=== PATIENT | female | born 1955 | race Caucasian/White ===

== ENCOUNTER 2021-04-11 14:47 | Outpatient (CLI) | payer MEDICARE, MEDICAID, SELFPAY ==
--- NOTE | 2021-04-11 15:01 | MM_ITS ---
WS: [id number] BILATERAL DIGITAL SCREENING MAMMOGRAPHY WITH CAD CLINICAL INFORMATION: SCREN HISTORY: Screening mammogram. No current complaints. COMPARISON: TECHNIQUE: Bilateral CC and MLO views. FINDINGS: The breasts are composed of heterogeneous fibroglandular density tissue, which can limit the detectio n of small underlying mass lesions. No suspicious mass, asymmetry, calcifications, or architectural d istortion. No evidence of malignancy. Vascular calcification. A few punctate calcifications right sharif ast. MM/[place] [id number] IMPRESSION: BI-RADS: 2-Benign FOLLOW UP: 1 Year Follow-up Recommend return to annual screening mammography.
--- NOTE | 2021-04-11 16:03 | XR_ITS ---
WS: [id number] DEXA (DUAL ENERGY X-RAY ABSORPTIOMETRY) Bone mineral density was performed using a Ferevo machine. HISTORY: MUSCLE WEAKNESS, PRIMARY OSTEOARTHRITIS, vitamin DEFICIENCY COMPARISON: 07/14/2015 Lumbar spine BMD (L1-L4): 1.396 g/cm2 T score: 1.8 Z score: 2.8 Total hip BMD: Left: 1.112 g/cm2. T score: 0.8 Z score: 1.7 Right: 1.140 g/cm2. T score: 1.1 Z score: 1.9 10 year probability of a major osteoporotic fracture is 7%. Compared to the prior study from 07/14/2015. Lumbar spine bone mineral density has increased by 7.6%. Bilateral hips bone mineral density has increased by 5.3%. XR/XR DEXA axial skeleton* [id number] IMPRESSION: NORMAL BONE MINERAL DENSITY based upon the WHO classification for females. Sign ificant increase in bone mineral density since the prior study.
== END 2021-04-11 14:48 | disposition home or self-care (01) ==
PROVIDERS: PCP Family Medicine; Visit Provider Nurse Practitioner Family
DX: Z12.31 Encounter for screening mammogram for malignant neoplasm of breast (principal); M19.91 Primary osteoarthritis, unspecified site; M62.81 Muscle weakness (generalized); E56.9 Vitamin deficiency, unspecified
CPT/HCPCS: 77067; 77080

== ENCOUNTER 2022-01-17 15:14 | Outpatient (CLI) | payer MEDICARE, MEDICAID, SELFPAY ==
--- NOTE | 2022-01-17 15:00 | USCV_ITS ---
Jenniffer Leblanc Age: 66 Gender: F : 1955 Exam Date: 01/17/2022 15:12 Ordering Phys: Nicolás Moore DPM Technologist: Unique Robles Exam Location: [facility] [place] Indication: DECREASED PULSES RIGHT LEFT Brachial 122.00 mmHg Brachial 123.00 mmHg Pressure (mmHg) Waveform Pressure (mmHg) Waveform 147.00 Above Knee 148.00 159.00 Below Knee 161.00 137.00 MACHINE CELL TUBER 149.00 160.00 DPA 110.00 1.30 Ankle/Brachial Index 1.21 116.00 Pre-Exercise Toe Pressure 180.00 Pre-Exercise Toe/Brachial Index 1.46 0.94 FINDINGS Normal resting ABIs bilaterally 1.3 and 1.21 Normal resting TBI's bilaterally, 0.94 and 1.46 CONCLUSIONS Normal resting MIRNA and TBIs bilaterally No significant arterial obstruction, based on the above findings Dr Michelle Mccain MD FAC (Electronically Signed) Final Date: 18 January 2022 18:52 S
== END 2022-01-17 15:15 | disposition home or self-care (01) ==
PROVIDERS: PCP Family Medicine; Visit Provider Podiatrist Foot & Ankle Surgery
DX: R09.89 Other specified symptoms and signs involving the circulatory and respiratory systems (principal)
CPT/HCPCS: 93923

== ENCOUNTER 2022-04-24 11:03 | Outpatient (CLI) | payer MEDICARE, MEDICAID, SELFPAY ==
--- NOTE | 2022-04-24 11:11 | MM_ITS ---
WS: [id number] SCREENING DIGITAL BREAST TOMOSYNTHESIS MAMMOGRAM WITH CAD HISTORY: SCREENING COMPARISON: 04/11/2021, 09/09/2019 and 06/03/2018 Bilateral CC and MLO with tomosynthesis and synthetic mammography submitted. Computer aided detection analyzed. Breast composition: The breasts are heterogeneously dense, which may obscure small masses. Well-circu mscribed 5 mm mass in the lateral RIGHT breast at 9:00. This nodule is at a middle depth. Otherwise e ach breast is negative. MM/[place] [id number] IMPRESSION: BI-RADS: 0-Incomplete: Need additional imaging evaluation FOLLOW UP: Need Additional Imaging Recommendation: RIGHT breast ultrasound, limited. Ultrasound directed to the la teral RIGHT breast from 7-10 o'clock.
== END 2022-04-24 11:04 | disposition home or self-care (01) ==
PROVIDERS: PCP Family Medicine; Visit Provider Family Medicine
DX: Z12.31 Encounter for screening mammogram for malignant neoplasm of breast (principal)
CPT/HCPCS: 77063; 77067

== ENCOUNTER 2022-05-18 10:16 | Outpatient (CLI) | payer MEDICAID, SELFPAY ==
--- NOTE | 2022-05-18 10:26 | US_ITS ---
WS: [id number] ULTRASOUND RIGHT BREAST HISTORY: R BREAST MASS COMPARISON: Mammogram 04/24/2022. TECHNIQUE: 2-D and Doppler. On the 10:00 axis is a hypoechoic ovoid mass, 4 cm from the nipple measuring 4 x 2 x 7 mm. Mild perip heral increased vascularity. This is not a simple cyst. This corresponds in size and location to the mammographic abnormality. US/US breast RT limited* [id number] IMPRESSION: BI-RADS: 3-Probably Benign FOLLOW-UP: 6 Month Follow-up Recommend RIGHT breast ultrasound follow-up in 6 months to document stability. Benign-appearing hypoechoic lesion at 10:00, 4 cm from the nipple. This is not a simple cyst therefore needs follow-up evaluation.
== END 2022-05-18 10:17 | disposition home or self-care (01) ==
LOC: RAD 10:17
PROVIDERS: PCP Family Medicine; Visit Provider Family Medicine
DX: N63.11 Unspecified lump in the right breast, upper outer quadrant (principal)
CPT/HCPCS: 76642

== ENCOUNTER 2024-02-15 10:08 | Emergency (ER) | payer MEDICARE, MEDICAID, SELFPAY ==
--- NOTE | 2024-02-15 10:10 | ED_ITS ---
HPI - Headache General: Chief Complaint: Headache Stated Complaint: head pain Time Seen by Provider: 02/15/24 10:10 Source: patient Mode of arrival: ambulatory Limitations: no limitations History of Present Illness: Patient is a 68-year-old female [facility] ED today [facility] for evaluation of a left sided headache. Patient states she has a longstanding history of left-sided headaches ever since she had rods placed in her cervical spine. Patient states her headaches are normally controlled with Tylenol. She states her headache today feels identical to previous headaches but has lasted longer than normal and is worse in severity. She was given 100 mcg of fentanyl and route by EMS. States headache has improved upon arrival. She is requiring a small amount of oxygen from the fentanyl. She has no other complaints at this time. No neurologic deficits. MD elicited complaint: headache Pertinent past history: migraines Onset (ago): day(s) Location: left and parietal Severity: severe Quality & Timing: similar to previous headaches Exacerbating factors: none Relieving factors: other (usually Tylenol helps) Associated symptoms: Reports no associated symptoms; Deny confusion, fever(s), nausea or vomiting Treatments prior to arrival: acetaminophen and other (EMS gave IV fentanyl/zofran ) Review of Systems Const: Denies: fever(s), chills or body aches Eyes: Denies: change in vision, blurry vision, photophobia, floaters or seeing flashes GI: Denies: nausea or vomiting Musc: Denies: neck pain Neuro: Reports: headache(s); Denies: numbness in extremities, weakness in extremities, sensory changes, dizziness, confusion, Slurred speech present or difficulty communicating thoughts [facility] ED PFSH: Medical History Osteoarthritis Dyslipidemia Hypertension Back pain Social History Smoking and tobacco/nicotine status: never used tobacco/nicotine Physical Exam Const: COMMON NORMALS: no acute distress, average body habitus, patient oriented x3, no limitations, healthy appearing, alert and well nourished GENERAL APPEARANCE: cooperative ORIENTATION/CONSCIOUSNESS: Yes awake, Yes oriented to person, Yes oriented to place and Yes oriented to time HENMT: COMMON NORMALS: normocephalic and atraumatic HEAD & SCALP: normal to inspection, normocephalic and atraumatic FACE & SINUS: normal facial exam and face symmetric Eye: COMMON NORMALS: EOMs intact bilaterally GENERAL EYE: appearance normal, both eyes and all related structures and normal light reflex DIRECT OPHTHALMOSCOPY: Yes normal light reflex Neck/C-Spine: COMMON NORMALS: full ROM, no lymphadenopathy and no meningeal signs GENERAL: Yes normal visual inspection CERVICAL SPINE: Yes cervical ROM normal Resp: COMMON NORMALS: normal respiratory effort and clear to auscultation bilaterally AUSCULTATION: clear to auscultation bilaterally OTHER: requiring a small amount of O2 after EMS gave her 100mcg IV fentanyl Cardio: COMMON NORMALS: regular rate and regular rhythm RATE: regular rate RHYTHM: regular rhythm Neuro: HASEEB COMA SCALE: document GCS findings [place]eb coma scale eye opening: Spontaneous [place] coma scale verbal response: Orientated [place] coma scale motor response: Obey commands Haseeb coma scale total score: 15 COMMON NORMALS: patient oriented x3, CN's II-XII intact bilaterally, moves all extremities, no focal motor deficits and no sensory deficits noted SENSORIUM/ORIENTATION: Yes alert, Yes oriented to person, Yes oriented to place and Yes oriented to time MENINGEAL SIGNS: Yes no meningeal signs Course Vital Signs: Vital signs: Vital Signs Temperature 97.6 F 02/15/24 10:12 Pulse Rate 70 02/15/24 10:28 Respiratory Rate 20 H 02/15/24 10:12 Blood Pressure 123/78 02/15/24 10:28 Pulse Oximetry 92 02/15/24 10:28 Oxygen Delivery Me thod Nasal Cannula 02/15/24 10:28 Oxygen Flow Rate 2 02/15/24 10:28 MDM - Headache Medical Decision Making Patient is 68-year-old female with a history of chronic headaches here for a headache that was worse than her baseline. No acute neurologic deficits. CT head normal. Patient feeling better after medications given here. She states she feels comfortable going back to her prison. All radiology interpretation(s) finalized by discharge Discharge Plan Discharge Patient Disposition: Home Clinical Impression: Chronic headache Qualifiers: Headache type: unspecified Intractability: not intractable Qualified Code(s): R51.9 - Headache, unspecified Condition: Stable Prescriptions: No Action EQ Gentle 0.3 % drops 1 drp ophthalmic (eye) BID PRN bisacodyl 10 mg suppository 10 mg VA DAILY PRN simvastatin 10 mg tablet 10 mg PO DAILY albuterol sulfate 2.5 mg /3 mL (0.083 %) solution for nebulization 2.5 mg inhalation Q6H levocetirizine 5 mg tablet 5 mg PO DAILY montelukast 10 mg tablet 10 mg PO DAILY fluticasone propion-salmeterol [Advair Diskus] 100-50 mcg/dose blister with device 1 inh inhalation BID duloxetine 20 mg capsule,delayed release(DR/EC) 20 mg PO BID cyclobenzaprine 10 mg tablet 10 mg PO TID celecoxib 100 mg capsule 100 mg PO BID lisinopril 10 mg tablet 10 mg PO DAILY gabapentin 300 mg capsule 300 mg PO BID (DME) custom molded accommodative orthotic See Rx Instructions .ROUTE .MEDSUPPLY Qty: 1 0RF Rx Instructions: As directed BY [facility] Discharge Orders: Discharge ED (Routine); Ordered 02/15/24 Ordered By: Zoraida Linda Referrals: Nick Clayton Jr, MD [Staff Physician] - Activity Restrictions/Additional Instructions: As we discussed your head CT today is negative. You report feeling better after medications administered here. We will discharge you back to your prison to follow-up with your primary care provider. Coding Level of Care Code ED Chop Saw Operator for Juan Henson
[2024-02-15 10:12] VITALS: BP 123/78; PULSE 103; RESP 20; TEMP 36.4; O2SAT 86; BMI 33.2
--- NOTE | 2024-02-15 10:26 | CT_ITS ---
WS: [id number] CT HEAD TECHNIQUE: Noncontrast CT of the head obtained from the skullbase to the vertex. CLINICAL INFORMATION: pain COMPARISON: None. DLP: 1050.[address] scans at [facility] use at least one of these dose optimization techniques: automated e xposure control; mA and/or kV adjustment per patient size (includes targeted exams where dose is matc hed to clinical indication); or iterative reconstruction. FINDINGS: No evidence of intracranial hemorrhage or mass effect. Ventricular system and basal cisterns are otero nt. Mild small vessel changes with mild parenchymal volume loss. No extra-axial fluid collections. No evidence of mass or mass effect. Mild mucosal thickening in the ethmoid air cells. Mastoid air cells are well aerated. Intracranial va scular calcification. Partially visualized postoperative changes in the cervical spine seen on the sc out imaging. IMPRESSION: 1. No evidence of intracranial hemorrhage or mass effect. 2. Mild small vessel changes with mild parenchymal volume loss progressed since 2011. 3. No acute intracranial findings.
[2024-02-15 10:28] VITALS: BP 123/78; PULSE 70; O2SAT 92
[2024-02-15] MEDS: dexamethasone 4 mg/mL INJ IVP (11:19)
[2024-02-15] MEDS: ketorolac 30 mg/mL INJ 15 MG IVP (11:19)
== END 2024-02-15 12:09 | disposition home or self-care (01) ==
PROVIDERS: Emergency Provider Physician Assistant; PCP Nurse Practitioner Family
DX: R51.9 Headache, unspecified (principal); E78.5 Hyperlipidemia, unspecified; I10 Essential (primary) hypertension
CPT/HCPCS: 70450; 96374; 96375; 99285; J1100; J1885

== ENCOUNTER 2024-04-01 12:07 | Outpatient (CLI) | payer MEDICARE, MEDICAID, SELFPAY ==
--- NOTE | 2024-04-01 12:26 | MR_ITS ---
WS: [id number] MRI CERVICAL SPINE NONCONTRAST TECHNIQUE: Sagittal T1, T2 and STIR imaging. Axial T2, gradient, and fiesta imaging. CLINICAL INFORMATION: PAIN COMPARISON: MRI [address] myelogram 2014 FINDINGS: Some images degraded by susceptibility artifact from hardware Reversal of normal cervical lordosis. Slight anterolisthesis C2 on C3. Slight retrolisthesis C3 on C4 and C4 on C5. ACDF C5-6. Posterior fixation C2-C5. Pedicle screw fixation C6-T1 Chronic myelomalacia in the cervical cord with mild cord atrophy. Myelomalacia progressed compared to 2013. Extensive laminectomy defects throughout the cervical spine. C2-C3: Moderate facet arthropathy. Spinal canal and foramen are patent. C3-C4: Disc osteophyte complex with slight indentation on the cervical cord. Spinal canal is patent w ith laminectomy defects. Moderate LEFT bony foraminal narrowing. C4-C5: Moderate facet arthropathy. Moderate LEFT and mild RIGHT bony foraminal narrowing. Laminectomy defects. C5-C6: ACDF. Moderate to severe LEFT and moderate RIGHT bony foraminal narrowing. Laminectomy defects . C6-C7: Moderate RIGHT greater than LEFT bony foraminal narrowing C7-T1: Spinal canal and foramen are patent. Visualized brain stem structures: Normal. Prevertebral soft tissues: Normal. MR/MR cervical spin wo con* [id number] IMPRESSION: 1. Extensive postoperative changes described above with wide laminectomy defec ts in the cervical spine. 2. Straightening with slight reversal normal cervical lordosis. Slight anterol isthesis C2 on C3. 3. Chronic myomalacia in the cervical cord progressed since 2013 with mild cor d atrophy. No significant central canal stenosis. 4. Disc osteophyte complex C3-C4 with slight indentation of the cervical cord with laminectomy defects. 5. Moderate LEFT C3-4 and LEFT C4-5 bony foraminal narrowing. 6. Moderate to severe LEFT and moderate RIGHT bony foraminal narrowing C5-6 7. Moderate RIGHT greater than LEFT bony foraminal narrowing C6-7.
== END 2024-04-01 12:08 | disposition home or self-care (01) ==
LOC: RAD 12:08
PROVIDERS: PCP Nurse Practitioner Family; Visit Provider Registered Nurse
DX: M43.12 Spondylolisthesis, cervical region (principal); M43.23 Fusion of spine, cervicothoracic region; G95.89 Other specified diseases of spinal cord; M48.8X2 Other specified spondylopathies, cervical region; M47.812 Spondylosis without myelopathy or radiculopathy, cervical region; M25.78 Osteophyte, vertebrae; M48.02 Spinal stenosis, cervical region; Z98.890 Other specified postprocedural states; M43.22 Fusion of spine, cervical region
CPT/HCPCS: 72141

== ENCOUNTER 2024-12-09 10:46 | Emergency (ER) | payer MEDICARE, MEDICAID, SELFPAY ==
[2024-12-09] VITALS (9 sets, daily range): BP systolic 92–120; BP diastolic 53–69; PULSE 69–112; RESP 16–22; TEMP 36.5–37.7; O2SAT 91–95
--- NOTE | 2024-12-09 10:58 | CT_ITS ---
WS: [id number] CT LUMBAR SPINE TECHNIQUE: Noncontrast CT of the lumbar spine with coronal and sagittal reformatted images. CLINICAL INFORMATION: back pain COMPARISON: MRI 02/10/2016 DLP: 874.[address] scans at [facility] use at least one of these dose optimization techniques: automated exposure control; mA and/or kV adjustment per patient size (includes targeted exams where dose is matched to clinical indication); or iterative reconstruction. FINDINGS: Partially evaluated severe RIGHT hydronephrosis with a large calculus in the proximal ureter measuring 11.3 mm with RIGHT ureterectasis and pelvicaliectasis. Induration about the RIGHT proximal ureter and RIGHT kidney. Mild lumbar curve. No acute compression. Disc narrowing worse L3-L4 and L5-S1 with vacuum disc phenomenon. L1-L2: Mild annular bulging. Moderate facet arthropathy. Mild LEFT foraminal narrowing. L2-L3: Mild annular bulging. Moderate facet arthropathy. Narrowing of the RIGHT subarticular recess. Foramen are patent. L3-L4: Posterior projecting disc osteophyte protrusion with moderate central canal stenosis. Impingement on the LEFT greater than RIGHT subarticular recess. Osteophytes are new compared to previous. Moderate to advanced facet arthropathy. Moderate bilateral foraminal narrowing. L4-L5: Moderate to severe central canal stenosis with advanced facet arthropathy and ligamentum flavum hypertrophy. This is progressed from previous. Moderate LEFT and mild RIGHT bony foraminal narrowing. L5-S1: Disc osteophyte complex with central osteophyte protrusion. Severe central canal stenosis with tapering of the thecal sac. Advanced facet arthropathy with ligamentum flavum hypertrophy. Severe bilateral foraminal narrowing impinges the exiting L5 nerve roots. Mild thickening of the adrenal glands bilaterally. CT/CT lumbar spine wo con* [id number] IMPRESSION: 1. Severe RIGHT hydronephrosis with 11.3 mm obstructing calculus RIGHT proxima l ureter 2. Moderate to severe central canal stenosis L3-L5 described above. This has a chronic appearance but progressed since 2016. Recommend spine surgery consulta tion Notified Chencho Feliz MD at 12/09/2024 12:22 PM.
--- NOTE | 2024-12-09 11:02 | W.ED.BACK ---
HPI - Back Pain/Injury General: Chief Complaint: Back Pain/Injury Stated Complaint: Back Pain/R Leg pain Time Seen by Provider: 12/09/24 10:52 Source: patient and EMS Mode of arrival: EMS Limitations: no limitations History of Present Illness: 69-year-old female states she has a history of chronic back pain. She is here from assisted living with increasing back pain over the last week. She denies any injury states the pain goes down her right leg she denies any bowel or bladder incontinence. Associated symptoms: Deny abdominal pain, chills, fever(s), nausea or vomiting Related Data Home Medications ?Medication ?Instructions ?Recorded ?Confirmed albuterol sulfate 2.5 mg/3 mL 2.5 mg inhalation Q6H PRN 06/07/21 12/09/24 (0.083 %) solution for nebulization Shortness Of Breath artificial tears(hypromellose) 0.3 2 drp ophthalmic (eye) Q6H PRN Dry 06/07/21 12/09/24 % eye drops (EQ Gentle) Eyes bisacodyl 10 mg rectal suppository 10 mg WI DAILY PRN Constipation 06/07/21 12/09/24 celecoxib 100 mg capsule 100 mg PO QAM 06/07/21 12/09/24 cyclobenzaprine 10 mg tablet 10 mg PO BEDTIME 06/07/21 12/09/24 duloxetine 20 mg capsule,delayed 20 mg PO QAM 06/07/21 12/09/24 release gabapentin 300 mg capsule 900 mg PO BID 06/07/21 12/09/24 levocetirizine 5 mg tablet 5 mg PO DAILY 06/07/21 12/09/24 lisinopril 10 mg tablet 10 mg PO QAM 06/07/21 12/09/24 montelukast 10 mg tablet 10 mg PO QAM 06/07/21 12/09/24 simvastatin 10 mg tablet 10 mg PO DAILY 06/07/21 12/09/24 Lactobacillus acidophilus 10 mg PO QAM 12/09/24 12/09/24 (Acidophilus capsule) acetaminophen 500 mg tablet 500 mg PO Q6H PRN Pain or fever 12/09/24 12/09/24 aluminum-mag hydroxide-simethicone 30 ml PO Q24H PRN heartburn or 12/09/24 12/09/24 200 mg-200 mg-20 mg/5 mL oral susp indigestion (Antacid) budesonide-formoterol HFA 80 2 puff inhalation BID 12/09/24 12/09/24 mcg-4.5 mcg/actuation aerosol inhaler (Symbicort) calcium 600 mg (as carbonate)-vit 1 tab PO DAILY 12/09/24 12/09/24 D3 20 mcg (800 unit) chewable tablet (Caltrate plus D) diclofenac sodium 1 % topical gel 2 g topical QID PRN chronic pain 12/09/24 12/09/24 docusate sodium 100 mg capsule 200 mg PO QAM 12/09/24 12/09/24 (Colace) famotidine 20 mg tablet 20 mg PO QAM 12/09/24 12/09/24 menthol 3.2 mg lozenges 3.2 mg mucous membrane Q2H PRN 12/09/24 12/09/24 Cough nystatin 100,000 unit/mL oral 10 ml PO Q4H PRN sore mouth 12/09/24 12/09/24 suspension phenol 1.4 % mucosal aerosol spray 4 spray mucous membrane Q2H PRN 12/09/24 12/09/24 (Chloraseptic Throat [place]) Sore Throat phenylephrine 0.25 %-mineral oil 1 applic WI BID PRN Hemorrhoids 12/09/24 12/09/24 14 %-petrolatm 74.9 % rectal ointment (Preparation H) potassium chloride 10 mEq 10 meq PO DAILY 12/09/24 12/09/24 tablet,extended release Previous Rx's ?Medication ?Instructions ?Recorded custom molded accommodative #1 ea 06/07/21 orthotic Allergies Allergy/AdvReac Type Severity Reaction Status Date / Time tramadol Allergy Severe ADR-Nausea Verified 02/15/24 10:16 Review of Systems Const: Denies: fever(s), chills, body aches or change in appetite ENMT: Denies: throat pain or dental pain Card: Denies: chest pain Resp: Denies: dyspnea GI: Denies: abdominal pain, nausea, vomiting or diarrhea Musc: Reports: back pain; Denies: neck pain Skin/Breast: Denies: rash Neuro: Denies: headache(s) PFSH ED PFSH: Medical History Osteoarthritis Dyslipidemia Hypertension Back pain Social History Smoking and tobacco/nicotine status: never used tobacco/nicotine Physical Exam Const: COMMON NORMALS: no acute distress, patient oriented x3 and healthy appearing HENMT: COMMON NORMALS: normocephalic and atraumatic HEAD & SCALP: normocephalic and atraumatic Neck/C-Spine: COMMON NORMALS: full ROM and supple Chest: COMMONS NORMALS: normal inspection of the chest Resp: COMMON NORMALS: normal respiratory effort, No retractions, No use of accessory muscles and clear to auscultation bilaterally AUSCULTATION: clear to auscultation bilaterally Cardio: COMMON NORMALS: regular rate, regular rhythm and No murmurs present (Cardio) RATE: regular rate RHYTHM: regular rhythm GI: COMMON NORMALS: Normal to inspection, nondistended, normoactive bowel sounds present, Soft to palpation, non-tender and no masses PALPATION: Yes Soft to palpation Extremity: COMMON NORMALS: normal to inspection and full ROM Neuro: COMMON NORMALS: patient oriented x3, moves all extremities and no focal motor deficits Psych: COMMON NORMALS: mental status grossly normal, Normal thought process present and cooperative THOUGHT PROCESS: Normal thought process present Skin: COMMON NORMALS: no rashes or lesions noted and no wounds GENERAL SKIN EXAM: no rashes or lesions noted Course Vital Signs: Vital signs: Vital Signs Temperature 97.7 F 12/09/24 14:23 Pulse Rate 81 12/09/24 14:46 Respiratory Rate 16 12/09/24 14:23 Blood Pressure 108/57 12/09/24 14:46 Pulse Oximetry 91 12/09/24 14:46 Oxygen Delivery Me thod Room Air 12/09/24 14:46 MDM - Back Pain/Injury Medical Decision Making Patient presents here with kidney stone does have a UTI as well and acute kidney injury spoke to urology at [facility] [place] will transfer there for higher level of care. Medical Records I reviewed the patient's medical records. Labs I reviewed the patient's lab results. 12/09/24 11:11 12/09/24 11:11 Radiology Impressions Lumbar Spine CT 12/09/24 10:58 IMPRESSION: 1. Severe RIGHT hydronephrosis with 11.3 mm obstructing calculus RIGHT proximal ureter 2. Moderate to severe central canal stenosis L3-L5 described above. This has a chronic appearance but progressed since 2016. Recommend spine surgery consultation Notified Chencho Feliz MD at 12/09/2024 12:22 PM. Chest X-Ray 12/09/24 11:36 IMPRESSION: No acute chest abnormality. Abdomen/Pelvis CT 12/09/24 11:49 IMPRESSION: 1. Severe RIGHT hydronephrosis with obstructing 11.3 mm proximal ureteral calculus described above. 2. Moderate constipation involving the distal transverse colon and sigmoid colon. Laboratory Results WBC 16.95 10^3/uL (3.29-11.43) H 12/09/24 11:11 RBC 3.96 10^6/uL (3.85-5.65) 12/09/24 11:11 Hgb 10.60 g/dL (11.27-16.99) L 12/09/24 11:11 Hct 34.5 % (36-47) L 12/09/24 11:11 MCV 87.1 fl (85-98) 12/09/24 11:11 MCH 26.8 pg (27-33) L 12/09/24 11:11 MCHC 30.7 g/dL (30-55) 12/09/24 11:11 RDW 15.9 % (12.1-15.1) H 12/09/24 11:11 Plt Count 447 10^3/cmm (157-399) H 12/09/24 11:11 MPV 10.5 fL (7.4-10.4) H 12/09/24 11:11 Neut % (Auto) 90.5 % 12/09/24 11:11 Lymph % (Auto) 3.2 % 12/09/24 11:11 Bibb % (Auto) 5.1 % 12/09/24 11:11 Eos % (Auto) 0.1 % 12/09/24 11:11 Baso % (Auto) 0.2 % 12/09/24 11:11 Neut # (Auto) 15.33 10^3/uL (1.8-7.7) H 12/09/24 11:11 Lymph # (Auto) 0.5 10^3/uL (0.8-4.8) L 12/09/24 11:11 Bibb # (Auto) 0.9 10^3/uL (0.2-0.9) 12/09/24 11:11 Eos # (Auto) 0.0 10^3/uL (0.0-0.8) 12/09/24 11:11 Baso # (Auto) 0.0 10^3/uL (0.0-0.1) 12/09/24 11:11 Nucleated RBC % (auto) 0 % 12/09/24 11:11 Nucleated RBCs # 0.0 /100WBC 12/09/24 11:11 Sodium 136 mmol/L (136-145) 12/09/24 11:11 Potassium 5.2 mmol/L (3.5-5.1) H 12/09/24 11:11 Chloride 98 mmol/L (98-107) 12/09/24 11:11 Carbon Dioxide 23 mmol/L (22-29) 12/09/24 11:11 Anion Gap 20.2 (5-19) H 12/09/24 11:11 BUN 38 mg/dL (8-23) H 12/09/24 11:11 Creatinine 3.2 mg/dL (0.5-0.9) H 12/09/24 11:11 GFR Calculation Not Reportable 12/09/24 11:11 Glucose 162 mg/dL (65-115) H 12/09/24 11:11 Calculated Osmolality 295 mOsm/kg (285-295) 12/09/24 11:11 Lactic Acid 1.0 mmol/L (0.5-2.2) 12/09/24 12:10 Calcium 9.1 mg/dL (8.5-10.5) 12/09/24 11:11 Total Bilirubin 0.7 mg/dL (0.15-1.2) 12/09/24 11:11 AST 26 U/L (0-32) 12/09/24 11:11 ALT 43 U/L (0-33) H 12/09/24 11:11 Alkaline Phosphatase 261 U/L (35-105) H 12/09/24 11:11 Total Protein 8.0 g/dL (6.6-8.7) 12/09/24 11:11 Albumin 3.0 g/dL (3.5-5.2) L 12/09/24 11:11 Globulin 5.0 g/dL (1.3-4.6) H 12/09/24 11:11 Urine Color Dark yellow (Yellow) A 12/09/24 11:20 Urine Appearance Turbid (CLEAR) A 12/09/24 11:20 Urine pH 5.0 (5-7) 12/09/24 11:20 Ur Specific [place] 1.021 (1.005-1.030) 12/09/24 11:20 Urine Protein 1+ (Negative) A 12/09/24 11:20 Urine Glucose (UA) Negative (Normal) 12/09/24 11:20 Urine Ketones Trace (Negative) 12/09/24 11:20 Urine Blood 1+ (Negative) A 12/09/24 11:20 Urine Nitrate Negative (Negative) 12/09/24 11:20 Urine Bilirubin 2+ (Negative) H 12/09/24 11:20 Urine Urobilinogen 2.0 mg/dL (Negative) H 12/09/24 11:20 Ur Leukocyte Esterase 3+ (Negative) A 12/09/24 11:20 Urine RBC 3-5 /hpf (0-2) 12/09/24 11:20 Urine WBC >100 /hpf (0-5) H 12/09/24 11:20 Ur Squamous Epith Cells 0-5 /hpf (0-5) 12/09/24 11:20 Amorphous Sediment Not Reportable 12/09/24 11:20 Urine Bacteria 4+ /hpf (NONE) H 12/09/24 11:20 Hyaline Casts 67.86 /lpf 12/09/24 11:20 Coronavirus (PCR) Negative (Negative) 12/09/24 11:12 Influenza A (PCR) Negative (Negative) 12/09/24 11:12 Influenza Type B (PCR) Negative (Negative) 12/09/24 11:12 RSV (PCR) Negative (Negative) 12/09/24 11:12 All radiology interpretation(s) finalized by discharge Discharge Plan Discharge Patient Disposition: Xfer Short-Term Hosp Clinical Impression: Kidney stone, Acute cystitis, Acute kidney injury Condition: Stable Prescriptions: No Action EQ Gentle 0.3 % drops 2 drp ophthalmic (eye) Q6H PRN (Reason: Dry Eyes) bisacodyl 10 mg suppository 10 mg WI DAILY PRN (Reason: Constipation) simvastatin 10 mg tablet 10 mg PO DAILY albuterol sulfate 2.5 mg /3 mL (0.083 %) solution for nebulization 2.5 mg inhalation Q6H PRN (Reason: Shortness Of Breath) levocetirizine 5 mg tablet 5 mg PO DAILY montelukast 10 mg tablet 10 mg PO QAM duloxetine 20 mg capsule,delayed release(DR/EC) 20 mg PO QAM cyclobenzaprine 10 mg tablet 10 mg PO BEDTIME celecoxib 100 mg capsule 100 mg PO QAM lisinopril 10 mg tablet 10 mg PO QAM gabapentin 300 mg capsule 900 mg PO BID (DME) custom molded accommodative orthotic See Rx Instructions .ROUTE .MEDSUPPLY Qty: 1 0RF Rx Instructions: As directed BY [facility] nystatin 100,000 unit/mL Suspension 10 ml PO Q4H PRN (Reason: sore mouth) Rx Instructions: swish, gargle, and spit. potassium chloride 10 mEq Tablet Extended Release 10 meq PO DAILY acetaminophen 500 mg Tablet 500 mg PO Q6H PRN (Reason: Pain or fever) famotidine 20 mg Tablet 20 mg PO QAM docusate sodium [Colace] 100 mg Capsule 200 mg PO QAM alum-mag hydroxide-simeth [Antacid] 200-200-20 mg/5 mL Suspension 30 ml PO Q24H PRN (Reason: heartburn or indigestion) Rx Instructions: administer between meals and at bedtime Acidophilus Capsule 10 mg PO QAM Chloraseptic Throat [place] 1.4 % Aerosol,[place] 4 spray MUCOUS MEMBRANE Q2H PRN (Reason: Sore Throat) budesonide-formoterol [Symbicort] 80-4.5 mcg/actuation Hfa Aerosol Inhaler 2 puff INHALATION BID diclofenac sodium 1 % Gel 2 g TOPICAL QID PRN (Reason: chronic pain) Cough Drops 3.2 mg Lozenge 3.2 mg MUCOUS MEMBRANE Q2H PRN (Reason: Cough) Preparation H 0.25-14-74.9 % Ointment 1 applic WI BID PRN (Reason: Hemorrhoids) Caltrate 600 plus D 600 mg-20 mcg (800 unit) Tablet,Chewable 1 tab PO DAILY Referrals: Shellie Encinas FNP [Primary Care Provider] - Print Language: Mauritanian Coding Level of Care Code ED Manager Custom for [employer]
[2024-12-09] MEDS: ketorolac 30 mg/mL INJ 15 MG IVP (11:04)
[2024-12-09] MEDS: dexamethasone 10 mg/mL INJ IVP (11:06)
[2024-12-09 11:27] LABS: Basophils % 0.2 %; Eosinophils % 0.1 %; Hematocrit 34.5 % (36-47); Lymphocytes # 0.5 10^3/uL (0.8-4.8); Lymphocytes % 3.2 %; Mean Corpuscular HGB Conc 30.7 g/dL (30-55); Mean Corpuscular Hemoglobin 26.8 pg (27-33); Mean Corpuscular Volume 87.1 fl (85-98); Mean Platelet Volume 10.5 fL (7.4-10.4); Monocytes # 0.9 10^3/uL (0.2-0.9); Monocytes % 5.1 %; Neutrophils # 15.33 10^3/uL (1.8-7.7); Neutrophils % 90.5 %; Nucleated Red Blood Cells % 0 %; Platelet Count 447 10^3/cmm (157-399); Red Blood Count 3.96 10^6/uL (3.85-5.65); Red Cell Distribution Width 15.9 % (12.1-15.1); White Blood Count 16.95 10^3/uL (3.29-11.43)
[2024-12-09 11:32] LABS: Bilirubin Urine 2+ (Negative); Blood Urine 1+ (Negative); Glucose Urine UA Negative (Normal); Ketones Urine Trace (Negative); Leukocyte Esterase Urine 3+ (Negative); Nitrate Urine Negative (Negative); Protein Urine 1+ (Negative); Specific Gravity, Urine 1.021 (1.005-1.030); Urine Appearance Turbid (CLEAR); Urine Color Dark Yellow (Yellow)
--- NOTE | 2024-12-09 11:36 | XR_ITS ---
WS: [id number] XR chest 1V portable [id number] REASON FOR EXAM: fever FINDINGS: Mild tortuosity of the thoracic aorta. Heart size at the upper limits of normal. Calcified granulomatous disease bilaterally. Old pleural pericardial reaction on the left. Linear atelectasis versus pulmonary scar/fibrosis in the left lower lung. Severe osteoarthritis of right shoulder. Anterior and posterior cervicothoracic fusion. XR/XR chest 1V portable [id number] IMPRESSION: No acute chest abnormality.
[2024-12-09 11:37] LABS: Add Urine Microscopic? YES; Bacteria Urine 4+ /hpf; Hyaline Casts Urine 67.86 /lpf; Squamous Epithelial Cell Urine 0-5 /hpf (0-5); WBC Urine >100 /hpf (0-5)
[2024-12-09 11:44] LABS: Alanine Aminotransferase 43 U/L (0-33); Alkaline Phosphatase 261 U/L (35-105); Anion Gap 20.2 (5-19); Aspartate Amino Transferase 26 U/L (0-32); Blood Urea Nitrogen 38 mg/dL (8-23); Calcium 9.1 mg/dL (8.5-10.5); Carbon Dioxide 23 mmol/L (22-29); Chloride 98 mmol/L (98-107); Creatinine Clr Calc Pharmacy 16.9256; Glucose 162 mg/dL (65-115); Osmolality Calculated 295 mOsm/kg (285-295); Potassium 5.2 mmol/L (3.5-5.1); Sodium 136 mmol/L (136-145); Total Bilirubin 0.7 mg/dL (0.15-1.2)
[2024-12-09 11:44] LABS: Add Urine Culture? Yes; UA Slide Review UA Slide Review Perf
--- NOTE | 2024-12-09 11:49 | CT_ITS ---
WS: [id number] CT ABDOMEN PELVIS TECHNIQUE: Noncontrast CT of the abdomen and pelvis with coronal and sagittal reformatted images. CLINICAL INFORMATION: pyelonephritis COMPARISON: None. DLP: 850.[address] scans at [facility] use at least one of these dose optimization techniques: automated exposure control; mA and/or kV adjustment per patient size (includes targeted exams where dose is matched to clinical indication); or iterative reconstruction. FINDINGS: Severe RIGHT hydronephrosis with obstructing 11.3 mm RIGHT proximal ureteral calculus. Mild induration about the RIGHT kidney and RIGHT ureter. RIGHT proximal ureterectasis. Distal RIGHT ureter is decompressed. No hydronephrosis in the LEFT kidney. LEFT ureter is decompressed. Subsegmental atelectasis in the lung bases. Hepatomegaly. Small esophageal hiatal hernia. Mild thickening of the adrenal glands bilaterally. Noncontrast pancreas appears normal. Normal caliber abdominal aorta. Aortic calcification. Sigmoid constipation. Moderate constipation in the transverse colon. Disc osteophyte complexes lower lumbar spine. CT/CT kidney stone [id number] IMPRESSION: 1. Severe RIGHT hydronephrosis with obstructing 11.3 mm proximal ureteral calc ulus described above. 2. Moderate constipation involving the distal transverse colon and sigmoid col on.
[2024-12-09 12:05] LABS: Covid PCR NEGATIVE (Negative); Influenza A NEGATIVE (Negative); Influenza B NEGATIVE (Negative); Respiratory Syncytial Virus Ce NEGATIVE (Negative)
[2024-12-09] MEDS: sodium chloride 0.9% 1,000 ML 999 ML IV ×3 (12:10→14:24)
[2024-12-09] MEDS: cefTRIAXone 1,000 mg SDV 1000 MG IVP (12:13)
--- NOTE | 2024-12-09 12:23 | PC.PHAR ---
Pt is from [facility]
--- NOTE | 2024-12-09 14:36 | PC.NURSE ---
pt npo, pt requesting something to drink, pt educated and understands. pt given wet swab for mouth.
--- NOTE | 2024-12-09 16:18 | PC.NURSE ---
this nurse called [facility] and spoke to [employer] to let them know that pt was going to be transferred out for urology. [employer] voiced understanding.
--- NOTE | 2024-12-09 16:19 | PC.NURSE ---
this nurse spoke to pt's daughter and let her know that pt is being transferred out for urology.
--- NOTE | 2024-12-09 18:29 | PC.NURSE ---
Pt report called to Mariaa to Brenda Monroy RN at [id number].
--- NOTE | 2024-12-09 18:47 | PC.NURSE ---
pt was put on bed st[place] and pt had continent urine episode.
--- NOTE | 2024-12-10 03:15 | PC.NURSE ---
Lab called a preliminary blood culture results. Those results were called to Mariaa Eduardo. Brenda Jones RN took the results at this time.
[2024-12-10 04:33] LABS: Acinetobacter baumannii Not Detected (NOT DETECT); Bacteroides fragilis Not Detected (NOT DETECT); CTX-M Not Detected (NOT DETECT); Citrobacter Not Detected (NOT DETECT); Cronobacter sakazakii Not Detected (NOT DETECT); Enterobacter cloacae complex Not Detected (NOT DETECT); Enterobacter non cloacae Not Detected (NOT DETECT); Fusobacterium necrophorum Not Detected (NOT DETECT); Fusobacterium nucleatum Not Detected (NOT DETECT); Haemophilus influenzae Not Detected (NOT DETECT); IMP Resistance Gene Not Detected (NOT DETECT); KPC Resistance Gene Not Detected (NOT DETECT); Klebsiella pneumoniae group Not Detected (NOT DETECT); Morganella morganii Not Detected (NOT DETECT); NDM Resistance Gene Not Detected (NOT DETECT); Neisseria meningitidis Not Detected (NOT DETECT); OXA Resistance Gene Not Detected (NOT DETECT); Pan Candida Not Detected (NOT DETECT); Pan Gram-Positive Not Detected (NOT DETECT); Proteus mirabilis Not Detected (NOT DETECT); Pseudomonas aeruginosa Not Detected (NOT DETECT); Salmonella Not Detected (NOT DETECT); Serratia Not Detected (NOT DETECT); Serratia marcescens Not Detected (NOT DETECT); Stenotrophomonas maltophilia Not Detected (NOT DETECT); VIM Resistance Gene Not Detected (NOT DETECT)
== END 2024-12-09 22:09 | disposition short-term general hospital (02) ==
PROVIDERS: Emergency Provider Emergency Medicine; PCP Nurse Practitioner Family
DX: N20.0 Calculus of kidney (principal); N30.00 Acute cystitis without hematuria; N17.9 Acute kidney failure, unspecified; Z11.52 Encounter for screening for COVID-19; E78.5 Hyperlipidemia, unspecified; I10 Essential (primary) hypertension
CPT/HCPCS: 36415; 71045; 72131; 74176; 80053; 81001; 83605; 85025; 87040; 87086; 87150; 87205; 87637; 96361; 96374; 96375; 99285; J0696; J1100; J1885; J7030